=== PATIENT | female | born 1970 | race Caucasian/White ===

== ENCOUNTER 2017-11-14 22:17 | Emergency (ER) | payer OTHER ==
[~2017-11-14] VITALS: Ht 152.4 cm; Wt 52.2 kg
[~2017-11-14 22:17] MED LIST: CODE1TAB37 PO; DOXYCYCLINE HY100 MG PO; KETO10TA2 PO; TYLENOL-CODEINE1 TAB PO
[2017-11-15] MEDS ORDERED: LEVSIN/SL0.125 MG SL (05:58)
== END 2017-11-15 05:53 | disposition home or self-care (01) ==
LOC: ER 22:17
DX: K59.09 Other constipation (principal); R10.84 Generalized abdominal pain; K66.0 Peritoneal adhesions (postprocedural) (postinfection)